=== PATIENT | female | born 1975 | race Two or more races ===

== ENCOUNTER 2017-05-24 05:26 | Inpatient (IN) | payer BC ==
[2017-05-24] MEDS: CEFAZOLIN 2 GM/50 ML (PMX) 50 ML IVPB (06:30)
[2017-05-24] MEDS: SOD CHLORIDE 0.9% 1,000 ML IV (06:30)
[2017-05-24] MEDS ORDERED: SUGAMMADEX SODIUM 200 MG/2 ML VIAL IV (07:00)
[2017-05-24] MEDS ORDERED: GLYCOPYRROLATE 0.4 MG INJ (07:35)
[2017-05-24] MEDS ORDERED: ROCURONIUM 50 MG INJ (07:35)
[2017-05-24] MEDS ORDERED: PROPOFOL 20 ML (07:35)
[2017-05-24] MEDS ORDERED: NEOSTIGMINE 3 MG/3 ML SYRINGE (07:35)
[2017-05-24] MEDS ORDERED: CEFAZOLIN 1 GM INJ (07:35)
[2017-05-24] MEDS: LACTATED RINGER'S 1,000 ML IV ×2 (07:46→18:09)
[2017-05-24] MEDS ORDERED: ONDANSETRON 4 MG INJ (07:52)
[2017-05-24] MEDS ORDERED: DEXAMETHASONE 4 MG/ML 1 ML INJ (07:52)
[2017-05-24] MEDS ORDERED: MIDAZOLAM 1 MG/ML 2 ML INJ (07:52)
[2017-05-24] MEDS ORDERED: FENTAnyl 50 MCG/ML VIAL (07:52)
[2017-05-24] MEDS ORDERED: HYDROmorphONE 0.5 MG/0.5 ML SYG IV (08:00)
[2017-05-24] MEDS ORDERED: ONDANSETRON 4 MG INJ IV (08:00)
[2017-05-24] MEDS ORDERED: ACETAMINOPHEN 325 MG TAB PO (08:00)
[2017-05-24] MEDS ORDERED: HYDROmorphONE (0.2 MG/ML) 10ML SYG IV ×2 (09:00)
[2017-05-24] MEDS ORDERED: TRIMETHOBENZAMIDE 100 MG/ML VIAL IM (09:00)
[2017-05-24] MEDS ORDERED: hydrALAzine 20 MG INJ IV (09:00)
[2017-05-24] MEDS ORDERED: FENTAnyl 50 MCG/ML VIAL IV ×2 (09:00)
[2017-05-24] MEDS ORDERED: DIPHENHYDRAMINE 50 MG INJ IV (09:00)
[2017-05-24] MEDS ORDERED: ALBUTEROL 0.083% (NEB) 2.5 MG/3 ML AMP HHN (09:00)
[2017-05-24] MEDS ORDERED: MIDAZOLAM 1 MG/ML 2 ML INJ IV (09:00)
[2017-05-24] MEDS ORDERED: OXYCODONE/ACETAMINOPHEN (5/325) TAB PO ×2 (09:00)
[2017-05-24] MEDS ORDERED: MEPERIDINE 25 MG INJ IV (09:00)
[2017-05-24] MEDS ORDERED: LABETALOL HCL 20MG INJ IV (09:00)
[2017-05-24] MEDS ORDERED: IPRATROPIUM (NEB) 0.5 MG/2.5 ML AMP HHN (09:00)
[2017-05-24] MEDS ORDERED: EPHEDrine SULFATE 50 MG/5 ML SYG IV (09:00)
[2017-05-24] MEDS: POLYMYXIN/BACITRACIN 1L IRRIG (09:40)
[2017-05-24] MEDS: BACITRACIN 50000 UNITS INJ IRR (09:41)
[2017-05-24] MEDS: SODIUM CL BACTERIOSTATIC 30 ML INJ ×2 (09:42→11:45)
[2017-05-24] MEDS: BUPIVACAINE LIPOSOME/PF 266 MG/20 ML VIAL INFIL (11:45)
[2017-05-24] MEDS: ONDANSETRON 4 MG INJ IV (12:05)
[2017-05-24] MEDS: FENTAnyl 50 MCG/ML VIAL IV ×2 (12:12→12:19)
[2017-05-24] MEDS: HYDROmorphONE (0.2 MG/ML) 10ML SYG IV (13:15)
[2017-05-24] MEDS: DIPHENHYDRAMINE 50 MG INJ IV (13:15)
[2017-05-24] MEDS: HYDROCODONE/APAP (10/325) TAB PO ×2 (17:39→21:58)
[2017-05-25] MEDS: LACTATED RINGER'S 1,000 ML IV ×2 (04:07→13:46)
[2017-05-25] MEDS: HYDROCODONE/APAP (10/325) TAB PO ×2 (06:18→12:04)
== END 2017-05-25 16:45 | disposition home or self-care (01) | DRG 583 ==
LOC: REC 05:26 → MS1 16:20
PROC: 0HBT0ZZ Excision of Right Breast, Open Approach (ICD-10-PCS; principal; 2017-05-24 07:30)
PROC: 0HTU0ZZ Resection of Left Breast, Open Approach (ICD-10-PCS; 2017-05-24 07:30)
PROC: 0HUV0KZ Supplement Bilateral Breast with Nonautologous Tissue Substitute, Open Approach (ICD-10-PCS; 2017-05-24 07:30)
DX: Z40.01 Encounter for prophylactic removal of breast (principal); C50.912 Malignant neoplasm of unspecified site of left female breast; Z15.01 Genetic susceptibility to malignant neoplasm of breast
CPT/HCPCS: 88307

== ENCOUNTER 2017-10-27 11:01 | Inpatient (IN) | payer BC ==
[~2017-10-27 11:01] MED LIST: CEFAZOLIN 1 GM INJ
[2017-10-27] MEDS ORDERED: FENTAnyl 50 MCG/ML VIAL (14:49)
[2017-10-27] MEDS ORDERED: MIDAZOLAM 1 MG/ML 2 ML INJ (14:50)
[2017-10-27] MEDS ORDERED: PROPOFOL 20 ML (14:51)
[2017-10-27] MEDS ORDERED: ROCURONIUM 50 MG INJ (14:54)
[2017-10-27] MEDS ORDERED: LIDOCAINE 2% (SDV) 5 ML INJ (14:54)
[2017-10-27] MEDS ORDERED: ONDANSETRON 4 MG INJ (14:54)
[2017-10-27] MEDS ORDERED: SUCCINYLCHOLINE CHLORIDE 100 MG/5 ML SYG IV (14:54)
[2017-10-27] MEDS ORDERED: HYDROmorphONE 1 MG/ML SYG IV (15:00)
[2017-10-27] MEDS ORDERED: BISACODYL (EC) 5 MG TAB PO (15:00)
[2017-10-27] MEDS ORDERED: KETOROLAC 30 MG INJ IV ×3 (15:00→17:00)
[2017-10-27] MEDS ORDERED: DIPHENHYDRAMINE 50 MG CAP PO (15:00)
[2017-10-27] MEDS ORDERED: ZOLPIDEM 5 MG TAB PO ×2 (15:00→17:00)
[2017-10-27] MEDS ORDERED: ROPIVACAINE 0.5 % 30 ML VIAL (16:16)
[2017-10-27] MEDS: THROMBIN 5000 UNIT VIAL (16:42)
[2017-10-27] MEDS ORDERED: FENTAnyl 50 MCG/ML VIAL IV ×2 (17:00)
[2017-10-27] MEDS ORDERED: NALOXONE (0.4 MG/ML) INJ IV (17:00)
[2017-10-27] MEDS ORDERED: HYDROmorphONE 1 MG/5 ML IV SYRINGE IV ×3 (17:00)
[2017-10-27] MEDS ORDERED: ONDANSETRON 4 MG INJ IV (17:00)
[2017-10-27] MEDS ORDERED: IPRATROPIUM (NEB) 0.5 MG/2.5 ML AMP HHN (17:00)
[2017-10-27] MEDS ORDERED: HYDROmorphONE 0.5 MG/0.5 ML SYG IV ×2 (17:00)
[2017-10-27] MEDS ORDERED: DIPHENHYDRAMINE 50 MG INJ IV ×2 (17:00)
[2017-10-27] MEDS ORDERED: MEPERIDINE 25 MG INJ IV (17:00)
[2017-10-27] MEDS ORDERED: ALBUMIN HUMAN 5% 250 ML IV (17:00)
[2017-10-27] MEDS: HYDROmorphONE 0.2 MG/ML PCA IV (17:53)
[2017-10-27] MEDS: TAMOXIFEN 10 MG TAB PO (22:25)
[2017-10-27] MEDS: METOCLOPRAMIDE 10 MG TAB PO ×2 (22:27→22:49)
[2017-10-27] MEDS: LACTATED RINGER'S 1,000 ML IV ×2 (22:28→22:54)
[2017-10-27] MEDS: CEFAZOLIN 1 GM/50 ML (PMX) 50 ML IVPB (22:28)
[2017-10-27] MEDS: ONDANSETRON 4 MG INJ IV (22:48)
[2017-10-27] MEDS: KETOROLAC 30 MG INJ IV (22:49)
[2017-10-28 06:04] LABS: ADD MAN DIFF? NO
[2017-10-28 06:14] LABS: BASOPHILS % 0.1 % (0.0-2.0); HEMATOCRIT 33.8 % (37.0-47.0); HEMOGLOBIN 11.4 g/dl (12.0-16.0); LYMPHOCYTES # 0.7 10^3/ul (0.8-2.9); LYMPHOCYTES % 7.7 % (15.0-51.0); MEAN CORPUSCULAR HEMOGLOBIN 31.7 pg (29.0-33.0); MEAN CORPUSCULAR HGB CONC 33.7 g/dl (32.0-37.0); MEAN CORPUSCULAR VOLUME 93.9 fl (82.0-101.0); MEAN PLATELET VOLUME 12.2 fl (7.4-10.4); MONOCYTE # 0.6 10^3/ul (0.3-0.9); MONOCYTES % 6.6 % (0.0-11.0); NEUTROPHIL # 7.6 10^3/ul (1.6-7.5); NEUTROPHILS % 85.1 % (39.0-77.0); PLATELET COUNT 138 10^3/UL (140-415); RED CELL DISTRIBUTION WIDTH 12.8 % (11.5-14.5)
[2017-10-28 06:14] LABS: WHITE BLOOD COUNT 8.9 10^3/ul (4.8-10.8)
[2017-10-28] MEDS: KETOROLAC 30 MG INJ IV ×3 (06:18→16:27)
[2017-10-28] MEDS: CEFAZOLIN 1 GM/50 ML (PMX) 50 ML IVPB (06:18)
[2017-10-28] MEDS: METOCLOPRAMIDE 10 MG TAB PO ×3 (06:18→17:49)
[2017-10-28 06:25] LABS: ANION GAP 13 (8-16); BLOOD UREA NITROGEN 11 mg/dl (7-20); CARBON DIOXIDE 24 mmol/L (21-31); CHLORIDE 105 mmol/L (97-110); CREATININE 0.57 mg/dl (0.44-1.00); POTASSIUM 4.4 mmol/L (3.5-5.1); SODIUM 138 mmol/L (135-144)
[2017-10-28] MEDS: LACTATED RINGER'S 1,000 ML IV ×2 (06:54→08:43)
[2017-10-28] MEDS: TAMOXIFEN 10 MG TAB PO (08:40)
[2017-10-28] MEDS ORDERED: TAMOXIFEN 10 MG TAB PO (09:00)
[2017-10-28] MEDS ORDERED: ONDANSETRON 4 MG INJ IV (13:00)
[2017-10-28] MEDS: BISACODYL (EC) 5 MG TAB PO (13:09)
[2017-10-28] MEDS: HYDROCODONE/APAP (5/325) TAB PO (20:28)
[2017-10-29] MEDS: METOCLOPRAMIDE 10 MG TAB PO ×5 (05:40→23:26)
[2017-10-29] MEDS: HYDROCODONE/APAP (5/325) TAB PO ×3 (05:40→17:40)
[2017-10-29 06:28] LABS: WHITE BLOOD COUNT 4.9 10^3/ul (4.8-10.8)
[2017-10-29 06:28] LABS: ADD MAN DIFF? NO; EOSINOPHILS % 0.4 % (0.0-7.0); HEMATOCRIT 33.9 % (37.0-47.0); HEMOGLOBIN 11.2 g/dl (12.0-16.0); LYMPHOCYTES # 0.8 10^3/ul (0.8-2.9); LYMPHOCYTES % 16.7 % (15.0-51.0); MEAN CORPUSCULAR HEMOGLOBIN 32.4 pg (29.0-33.0); MEAN PLATELET VOLUME 12.2 fl (7.4-10.4); MONOCYTE # 0.4 10^3/ul (0.3-0.9); MONOCYTES % 8.7 % (0.0-11.0); NEUTROPHIL # 3.6 10^3/ul (1.6-7.5); NEUTROPHILS % 73.8 % (39.0-77.0); PLATELET COUNT 122 10^3/UL (140-415); RED BLOOD COUNT 3.46 10^6/ul (4.20-5.40); RED CELL DISTRIBUTION WIDTH 13.2 % (11.5-14.5)
[2017-10-29] MEDS: TAMOXIFEN 10 MG TAB PO (08:06)
[2017-10-29] MEDS: IBUPROFEN 800 MG TAB PO (20:08)
[2017-10-30] MEDS: METOCLOPRAMIDE 10 MG TAB PO (05:32)
[2017-10-30] MEDS: HYDROCODONE/APAP (5/325) TAB PO (05:33)
[2017-10-30] MEDS: IBUPROFEN 800 MG TAB PO (08:26)
[2017-10-30] MEDS: TAMOXIFEN 10 MG TAB PO (09:07)
== END 2017-10-30 11:15 | disposition home or self-care (01) | DRG 743 ==
LOC: REC 11:01 → MS2 10-28 18:20
PROC: 0UT20ZZ Resection of Bilateral Ovaries, Open Approach (ICD-10-PCS; principal; 2017-10-27 13:00)
PROC: 0UT90ZZ Resection of Uterus, Open Approach (ICD-10-PCS; 2017-10-27 13:00)
PROC: 0UT70ZZ Resection of Bilateral Fallopian Tubes, Open Approach (ICD-10-PCS; 2017-10-27 13:00)
PROC: 0TNB0ZZ Release Bladder, Open Approach (ICD-10-PCS; 2017-10-27 13:00)
DX: Z40.02 Encounter for prophylactic removal of ovary(s) (principal); N73.6 Female pelvic peritoneal adhesions (postinfective); N32.89 Other specified disorders of bladder; Z40.09 Encounter for prophylactic removal of other organ; Z15.02 Genetic susceptibility to malignant neoplasm of ovary; Z15.04 Genetic susceptibility to malignant neoplasm of endometrium; Z90.13 Acquired absence of bilateral breasts and nipples; Z85.3 Personal history of malignant neoplasm of breast; Z92.21 Personal history of antineoplastic chemotherapy; Z92.3 Personal history of irradiation
CPT/HCPCS: 71045; 80051; 82565; 84520; 85025; 87086; 88307

== ENCOUNTER 2018-05-16 05:34 | Day surgery (SDC) | payer BC ==
[2018-05-16] MEDS ORDERED: SOD CHLORIDE 0.9% 1,000 ML IV (06:30)
[2018-05-16] MEDS ORDERED: SEVOFLURANE 15 MIN (07:00)
[2018-05-16] MEDS ORDERED: GLYCOPYRROLATE 0.4 MG INJ ×2 (07:00→08:58)
[2018-05-16] MEDS ORDERED: LIDOCAINE 2% (SDV) 5 ML INJ (07:00)
[2018-05-16] MEDS ORDERED: POLYMYXIN/BACITRACIN 1L IRRIG (07:02)
[2018-05-16] MEDS ORDERED: BUPIVACAINE 0.25% (MPF) 30 ML INJ (07:04)
[2018-05-16] MEDS ORDERED: GENTAMICIN 80 MG INJ (07:05)
[2018-05-16] MEDS ORDERED: PROPOFOL 20 ML (07:35)
[2018-05-16] MEDS ORDERED: ROCURONIUM 50 MG INJ (07:46)
[2018-05-16] MEDS ORDERED: CEFAZOLIN 1 GM INJ (07:47)
[2018-05-16] MEDS: EPINEPHrine 1 MG INJ (07:58)
[2018-05-16] MEDS: BUPIVACAINE LIPOSOME/PF 266 MG/20 ML VIAL INFIL (07:58)
[2018-05-16] MEDS ORDERED: morphine 2 MG INJ IV (08:00)
[2018-05-16] MEDS ORDERED: ONDANSETRON 4 MG INJ IV ×2 (08:00→09:30)
[2018-05-16] MEDS ORDERED: DEXAMETHASONE 4 MG/ML 5 ML INJ (08:48)
[2018-05-16] MEDS ORDERED: ONDANSETRON 4 MG INJ (08:48)
[2018-05-16] MEDS ORDERED: NEOSTIGMINE 3 MG/3 ML SYRINGE (08:58)
[2018-05-16] MEDS: HYDROmorphONE 1 MG/5 ML IV SYRINGE IV (09:28)
[2018-05-16] MEDS ORDERED: LABETALOL HCL 20MG INJ IV (09:30)
[2018-05-16] MEDS ORDERED: OXYCODONE/ACETAMINOPHEN (5/325) TAB PO ×2 (09:30)
[2018-05-16] MEDS ORDERED: HYDROmorphONE 1 MG/5 ML IV SYRINGE IV ×2 (09:30)
[2018-05-16] MEDS ORDERED: MIDAZOLAM 1 MG/ML 2 ML INJ IV (09:30)
[2018-05-16] MEDS ORDERED: KETOROLAC 30 MG INJ IV (09:30)
[2018-05-16] MEDS ORDERED: MEPERIDINE 25 MG INJ IV (09:30)
[2018-05-16] MEDS ORDERED: EPHEDrine SULFATE 50 MG/5 ML SYG IV (09:30)
[2018-05-16] MEDS ORDERED: FENTAnyl 50 MCG/ML VIAL IV ×3 (09:30)
[2018-05-16] MEDS ORDERED: hydrALAzine 20 MG INJ IV (09:30)
[2018-05-16] MEDS ORDERED: DIPHENHYDRAMINE 50 MG INJ IV (09:30)
[2018-05-16] MEDS: HYDROCODONE/APAP (5/325) TAB PO (11:07)
== END 2018-05-16 12:58 | disposition home or self-care (01) ==
LOC: SDS 05:34
DX: N65.1 Disproportion of reconstructed breast (principal); Z85.3 Personal history of malignant neoplasm of breast
CPT/HCPCS: 19380